=== PATIENT | female | born 1965 | race Caucasian/White ===

== ENCOUNTER → 2016-06-14 13:20 | Outpatient (CLI) | payer BC ==
[2015-10-10 14:46] VITALS: BMI 46.5
[~2016-06-14 13:20] MED LIST: FUROSEMIDE20 MG PO; LEVOTHYROXINE50 MCG PO; Lortab Liquid PO; MAXALT MLT10 MG/TAB PO; OMEPRAZOLE40 MG PO; PRAVACHOL80 MG PO; RELAFEN750 MG PO; ZOFRAN ODT4 MG/UDTAB PO
== END | disposition home or self-care (01) ==
LOC: D.US 13:20
DX: N28.1 Cyst of kidney, acquired (principal)

== ENCOUNTER → 2016-10-12 16:22 | Outpatient (CLI) | payer BC ==
[2015-10-10 14:46] VITALS: BMI 46.5
[2016-10-12 16:49] LABS: BASOPHILS 0.6 % (0-2); EOSINOPHILS 1.5 % (0-7); HEMATOCRIT 39.3 % (36.0-48.0); HEMOGLOBIN 13.3 g/dL (12-16); MCH 32.2 pg (26.0-34.0); MCHC 33.8 g/dL (31.0-37.0); MCV 95.2 fL (80.0-100.0); MEAN PLATELET VOLUME 9.3 fL (7.4-10.4); MONOCYTES 10.3 % (2-11); NEUTROPHILS 41.6 % (40-80); PLATELET COUNT 220 10x3/uL (130-400); RBC 4.13 10x6/uL (4.00-5.40); RDW 12.7 % (11.5-14.5); WBC 8.5 10x3/uL (4.8-10.8)
[2016-10-12 17:34] LABS: ALBUMIN 3.7 g/dL (3.4-5.0); ANION GAP 14.8 mmol/L (8-16); BILIRUBIN - TOTAL 0.2 mg/dL (0.2-1.3); CALCIUM 9.1 mg/dL (8.5-10.1); CARBON DIOXIDE 25.4 mmol/L (21.0-32.0); CHOL - HDL RATIO 6.8 ratio (2.3-4.1); LDL-HDL RATIO 4.5 ratio (1.5-3.5); POTASSIUM - SERUM 4.2 mmol/L (3.5-5.1); T4 THYROXIN - FREE 1.03 ng/dL (0.76-1.46); THYROID STIMULATING HORMONE 2.04 uIU/mL (0.36-3.74)
[2016-10-15 12:12] LABS: VITAMIN D 25 HYDROXY 34.6 ng/mL (30.0-100.0)
== END | disposition home or self-care (01) ==
LOC: D.LAB 10-11 10:15
PROVIDERS: Surgery
DX: Z00.00 Encounter for general adult medical examination without abnormal findings (principal)

== ENCOUNTER → 2016-11-07 15:41 | Outpatient (CLI) | payer BC ==
[2015-10-10 14:46] VITALS: BMI 46.5
== END | disposition home or self-care (01) ==
LOC: D.MRI 11-05 16:00
DX: M54.16 Radiculopathy, lumbar region (principal)

== ENCOUNTER → 2017-01-22 12:37 | Outpatient (CLI) | payer BC ==
[2015-10-10 14:46] VITALS: BMI 46.5
== END | disposition home or self-care (01) ==
LOC: D.MAMMO 12:37
DX: Z12.31 Encounter for screening mammogram for malignant neoplasm of breast (principal)

== ENCOUNTER → 2018-01-30 07:38 | Outpatient (CLI) | payer BC ==
[~2018-01-30] VITALS: Ht 152.4 cm; Wt 86.4 kg
[2018-01-30 08:19] VITALS: BP 143/66; Ht 152.4 cm; Wt 86.4 kg
== END | disposition home or self-care (01) ==
LOC: D.OPS 07:38
DX: M81.0 Age-related osteoporosis without current pathological fracture (principal); Z01.812 Encounter for preprocedural laboratory examination

== ENCOUNTER → 2018-02-17 20:26 | Outpatient (CLI) | payer BC ==
[2018-01-30 08:19] VITALS: BMI 37.1
== END | disposition home or self-care (01) ==
LOC: D.MAMMO 16:15
DX: Z12.31 Encounter for screening mammogram for malignant neoplasm of breast (principal)

== ENCOUNTER → 2018-03-19 21:10 | Outpatient (CLI) | payer BC ==
[2018-01-30 08:19] VITALS: BMI 37.1
== END | disposition home or self-care (01) ==
LOC: D.MAMMO 13:30
DX: R92.8 Other abnormal and inconclusive findings on diagnostic imaging of breast (principal)

== ENCOUNTER 2019-04-21 08:00 | Outpatient (CLI) | payer OTHER ==
[2018-01-30 08:19] VITALS: BMI 37.1
== END 2019-04-21 23:59 | disposition home or self-care (01) ==
LOC: D.MAMMO 08:00
PROVIDERS: ATTEND Family Medicine
DX: Z12.31 Encounter for screening mammogram for malignant neoplasm of breast (principal)

== ENCOUNTER 2020-07-05 17:45 | Outpatient (CLI) | payer OTHER ==
[2018-01-30 08:19] VITALS: BMI 37.1
== END 2020-07-05 23:59 | disposition home or self-care (01) ==
LOC: D.MAMMO 17:45
PROVIDERS: ATTEND Family Medicine
DX: Z12.31 Encounter for screening mammogram for malignant neoplasm of breast (principal)

== ENCOUNTER 2020-10-24 08:59 | Day surgery (SDC) | payer OTHER ==
[~2020-10-24] VITALS: Ht 152.4 cm; Wt 89.5 kg
[2020-10-24 09:25] LABS: HEMATOCRIT 41.1 % (36.0-48.0); HEMOGLOBIN 13.4 g/dL (12-16); MCH 28.1 pg (26.0-34.0); MCHC 32.5 g/dL (31.0-37.0); MCV 86.4 fL (80.0-100.0); MEAN PLATELET VOLUME 7.4 fL (7.4-10.4); RBC 4.76 10x6/uL (4.00-5.40); RDW 15.4 % (11.5-14.5); WBC 6.2 10x3/uL (4.8-10.8)
[2020-10-24 10:03] VITALS: BP 128/70; Ht 152.4 cm; Wt 89.5 kg
--- NOTE | 2020-10-24 19:08 | NUR ---
PER RA MCGRAW TO DISCHARGE HOME. IV D/C'D WITH CANNULA INTACT, PRESSURE HELD AND DRSG PLACED. DISCHARGE INSTRUCTIONS GIVEN
== END 2020-10-24 12:15 | disposition home or self-care (01) ==
LOC: D.OPS 08:59
PROVIDERS: ATTEND Surgery
DX: K21.9 Gastro-esophageal reflux disease without esophagitis (principal); K44.9 Diaphragmatic hernia without obstruction or gangrene; Z98.84 Bariatric surgery status; I10 Essential (primary) hypertension